=== PATIENT | male | born 1990 | race Caucasian/White ===

== ENCOUNTER 2024-07-31 12:29 | Emergency (ER) | payer SELFPAY ==
[2024-07-31 12:32] VITALS: BP 129/76; PULSE 83; RESP 15; TEMP 36.4; O2SAT 100; BMI 23.0
--- NOTE | 2024-07-31 13:44 | ED_ITS ---
Documented by User: [email or web address] Sutton 07/31/24 13:49 HPI - Back Pain/Injury General: Chief Complaint: Back Pain/Injury Stated Complaint: low back pain Time Seen by Provider: 07/31/24 13:09 Source: patient Mode of arrival: ambulatory Limitations: no limitations History of Present Illness: Patient is a 33-year-old male presenting to the emergency department complaining of right lower back pain over the past few days. Reports a history of sciatica 10 years ago, has not had issues with this since. 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 Denies any trauma or heavy lifting/bending. No bowel or bladder incontinence. He also is reporting a cut on his right arm that looks like it is infected, states that he tried to get in with his primary care provider with these complaints but was unable to get an appointment. He is anxious at this time of examination, complaining of spots all over his right arm that do not appear present. His vitals are normal at this time. MD elicited complaint: back pain Pertinent past history: prior back pain Onset (ago): day(s) Timing: constant Similar Symptoms Previously: Yes Quality: sharp Location: right lower back Radiation: right upper leg Exacerbating factors: movement Context: unknown Associated symptoms: Deny abdominal pain, chills, fever(s), nausea or vomiting Related Data Previous Rx's Medication Instructions Recorded cyclobenzaprine 10 mg tablet 10 mg PO TID PRN muscle spasm #15 07/31/24 tabs sulfamethoxazole 800 1 tab PO BID 7 days #14 tabs 07/31/24 mg-trimethoprim 160 mg tablet (Bactrim DS) Review of Systems General: Reports: 10 or more systems reviewed and unremarkable except in HPI and below Const: Denies: fever(s) or chills Card: Denies: chest pain Resp: Denies: dyspnea or productive cough GI: Denies: abdominal pain, nausea, vomiting or diarrhea : Denies: flank pain Musc: Reports: back pain and extremity pain; Denies: neck pain, extremity swelling, joint pain, joint swelling, joint redness, joint warmth, limited range of motion or muscle weakness Skin/Breast: Reports: changing lesions (To right upper arm); Denies: rash Neuro: Denies: headache(s), numbness in extremities or weakness in extremities Physical Exam Const: COMMON NORMALS: patient oriented x3, no limitations, healthy appearing, alert and well nourished GENERAL APPEARANCE: anxious HENMT: COMMON NORMALS: normocephalic and atraumatic HEAD & SCALP: normocephalic and atraumatic Neck/C-Spine: COMMON NORMALS: full ROM, supple and no meningeal signs Resp: COMMON NORMALS: normal respiratory effort, No use of accessory muscles and clear to auscultation bilaterally AUSCULTATION: clear to auscultation bilaterally Cardio: COMMON NORMALS: regular rate and regular rhythm RATE: regular rate RHYTHM: regular rhythm Back/Pelvis: OTHER: Reproducible tenderness to palpation to the right lower back. No spinous process tenderness. No bruising or other signs of trauma. Extremity: COMMON NORMALS: normal to inspection, full ROM, capillary refill normal, no joint enlargement and no clubbing, cyanosis or edema Neuro: COMMON NORMALS: patient oriented x3, moves all extremities, no focal motor deficits, no sensory deficits noted and deep tendon reflexes 2+ bilaterally SENSORIUM/ORIENTATION: Yes alert MENINGEAL SIGNS: Yes no meningeal signs Skin: NARRATIVE SKIN EXAM: 4 cm superficial cut to the volar aspect of patient's right distal forearm. There is some surrounding erythema and swelling. Course Vital Signs: Vital signs: Vital Signs Temperature 97.6 F 07/31/24 12:32 Pulse Rate 83 07/31/24 12:32 Respiratory Rate 15 07/31/24 12:32 Blood Pressure 129/76 07/31/24 12:32 Pulse Oximetry 100 07/31/24 12:32 Oxygen Delivery Me thod Room Air 07/31/24 12:32 MDM - Back Pain/Injury Medical Decision Making Patient presented with right lower back pain, no other concerning symptoms. His vitals were stable. He was very anxious, and upon informing him that the bumps in his right arm appear to be folliculitis, he expressed much relief. The cut on his right arm did look potentially mildly infected, and told him he was started on short course of antibiotics. Also told him we will try muscle relaxer and Toradol for his back pain, as x-ray not warranted due to no trauma. However prior to administration of medications, patient left without any warning and was unable to get medications here. Prior to him leaving I did tell him we would send in antibiotics to his pharmacy as well as the muscle relaxers and I did tell him to follow-up with primary care, however he was unable to get his discharge paperwork. No radiology studies performed this visit Discharge Plan Discharge Patient Disposition: Home Clinical Impression: Cellulitis of arm, right Strain of lumbar region Qualifiers: Encounter type: initial encounter Qualified Code(s): S39.012A - Strain of muscle, fascia and tendon of lower back, initial encounter Condition: Stable Prescriptions: New sulfamethoxazole-trimethoprim [Bactrim DS] 800-160 mg tablet 1 tab PO BID 7 Days Qty: 14 0RF cyclobenzaprine 10 mg tablet 10 mg PO TID PRN (Reason: muscle spasm) Qty: 15 0RF Discharge Orders: Discharge ED (Routine); Ordered 07/31/24 Ordered By: Oscar Ponce Referrals: Diana Manning FNP-C [Primary Care Provider] - Patient Instructions: Cellulitis (ED), Low Back Strain (ED) Activity Restrictions/Additional Instructions: For your back pain, apply heat for added relief. Take muscle relaxers. Alternate Tylenol/ibuprofen, general rest and recovery. For your cellulitis, please take Bactrim as prescribed. Monitor for any worsening signs of infection and return for reevaluation. Please follow-up with your primary care provider later this week as discussed. Coding Level of Care Code ED Marketing Intelligence Analyst for [facility] Documented by User: Sami Forrester DO 08/01/24 14:08 HPI - Back Pain/Injury General: Chief Complaint: Back Pain/Injury Stated Complaint: low back pain Time Seen by Provider: 07/31/24 13:09 Related Data Previous Rx's Medication Instructions Recorded cyclobenzaprine 10 mg tablet 10 mg PO TID PRN muscle spasm #15 07/31/24 tabs sulfamethoxazole 800 1 tab PO BID 7 days #14 tabs 07/31/24 mg-trimethoprim 160 mg tablet (Bactrim DS) Course Vital Signs: Vital signs: Vital Signs Temperature 97.6 F 07/31/24 12:32 Pulse Rate 83 07/31/24 12:32 Respiratory Rate 15 07/31/24 12:32 Blood Pressure 129/76 07/31/24 12:32 Pulse Oximetry 100 07/31/24 12:32 Oxygen Delivery Me thod Room Air 07/31/24 12:32 MDM - Back Pain/Injury Medical Decision Making Patient presented with right lower back pain, no other concerning symptoms. His vitals were stable. He was very anxious, and upon informing him that the bumps in his right arm appear to be folliculitis, he expressed much relief. The cut on his right arm did look potentially mildly infected, and told him he was started on short course of antibiotics. Also told him we will try muscle re laxer and Toradol for his back pain, as x-ray not warranted due to no trauma. However prior to administration of medications, patient left without any warning and was unable to get medications here. Prior to him leaving I did tell him we would send in antibiotics to his pharmacy as well as the muscle relaxers and I did tell him to follow-up with primary care, however he was unable to get his discharge paperwork. Chart reviewed Discharge Plan Discharge Patient Disposition: Home Clinical Impression: Cellulitis of arm, right Strain of lumbar region Qualifiers: Encounter type: initial encounter Qualified Code(s): S39.012A - Strain of muscle, fascia and tendon of lower back, initial encounter Condition: Stable Prescriptions: New sulfamethoxazole-trimethoprim [Bactrim DS] 800-160 mg tablet 1 tab PO BID 7 Days Qty: 14 0RF cyclobenzaprine 10 mg tablet 10 mg PO TID PRN (Reason: muscle spasm) Qty: 15 0RF Discharge Orders: Discharge ED (Routine); Ordered 07/31/24 Ordered By: Oscar Ponce Referrals: Diana Manning FNP-C [Primary Care Provider] - Patient Instructions: Cellulitis (ED), Low Back Strain (ED) Activity Restrictions/Additional Instructions: For your back pain, apply heat for added relief. Take muscle relaxers. Alternate Tylenol/ibuprofen, general rest and recovery. For your cellulitis, please take Bactrim as prescribed. Monitor for any worsening signs of infection and return for reevaluation. Please follow-up with your primary care provider later this week as discussed. Coding Level of Care Code ED Marketing Intelligence Analyst for [facility]
== END 2024-07-31 13:46 | disposition home or self-care (01) ==
PROVIDERS: Emergency Provider Physician Assistant; PCP Nurse Practitioner Family
DX: L03.113 Cellulitis of right upper limb (principal); S39.012A Strain of muscle, fascia and tendon of lower back, initial encounter; X58.XXXA Exposure to other specified factors, initial encounter
CPT/HCPCS: 99283